=== PATIENT | male | born 1945 | race Caucasian/White ===

== ENCOUNTER → 2019-02-16 | Outpatient (CLI) | payer MEDICARE ==
[~2019-02-16] MED LIST: REGADENOSON 0.4 MG/5 ML SYR IV ONE
--- NOTE | 2019-02-16 21:20 | Myoview Stress Test ---
DATE OF STUDY: 02/16/2019 08:29:00 Stress Test - Treadmill ONLY PROCEDURE TITLE: Rest/stress single isotope SPECT imaging with pharmacologic stress and gated SPECT imaging. INDICATION: Chest pain. PROCEDURE IN DETAIL: Pharmacologic stress testing was performed with regadenoson per protocol. The heart rate was 68 beats per minute at rest and increased to 88 beats per minute during regadenoson infusion. The resting blood pressure was 133/65 mmHg and decreased to 115/62 mmHg, which is a normal response. The resting electrocardiogram demonstrated sinus bradycardia with ST-T wave abnormalities. There were no ST-segment changes suggestive of myocardial ischemia. Myocardial perfusion imaging was performed at rest following the injection of 10.9 mCi of tetrofosmin. At peak pharmacologic effect, the patient was injected with 31.8 mCi of tetrofosmin. Gated post-stress tomographic imaging was performed. FINDINGS: The overall quality of study is fair. Left ventricular cavity is noted to be normal size on the rest and stress studies. SPECT images demonstrate homogeneous tracer distribution throughout the myocardium. Gated SPECT imaging reveals normal myocardial thickening and wall motion. The left ventricular ejection fraction is calculated to be 64%. IMPRESSION: Myocardial perfusion imaging is normal. Overall left ventricular systolic function was normal without regional wall motion abnormalities. Kirti Salcedo MD ABS/MODL /[id number]
== END ==
LOC: NM 08:12
PROVIDERS: ATTEND Internal Medicine
DX: I25.10 Atherosclerotic heart disease of native coronary artery without angina pectoris (principal); R07.9 Chest pain, unspecified
CPT/HCPCS: 78452; 93017; A9502; J2785

== ENCOUNTER 2022-08-19 13:00 | Outpatient (RCR) | payer MEDICARE | END 2022-09-03 | LOC: PT 13:00 | PROVIDERS: ATTEND Orthopaedic Surgery | DX: M13.811 Other specified arthritis, right shoulder (principal) ==